=== PATIENT | male | born 1990 | race Caucasian/White ===

== ENCOUNTER 2018-10-11 18:05 | Emergency (ER) | payer SELFPAY ==
[~2018-10-11] VITALS: Ht 180.3 cm; Wt 78.0 kg
[2018-10-11] MEDS ORDERED: IBUPROFEN 600MG TABLET PO ONE (19:15)
[2018-10-11 21:42] VITALS: BP 136/83
== END 2018-10-11 21:44 | disposition home or self-care (01) ==
LOC: ER 18:05
DX: S00.83XA Contusion of other part of head, initial encounter (principal); S00.03XA Contusion of scalp, initial encounter; R07.9 Chest pain, unspecified; F12.10 Cannabis abuse, uncomplicated; Z98.890 Other specified postprocedural states; Y04.0XXA Assault by unarmed brawl or fight, initial encounter; Y93.89 Activity, other specified; Y92.89 Other specified places as the place of occurrence of the external cause; Y99.8 Other external cause status
CPT/HCPCS: 70486; 71045; 93005; 99284